=== PATIENT | female | born 1950 | race Caucasian/White ===

== ENCOUNTER 2019-04-23 12:02 | Outpatient (CLI) | payer MEDICARE, SELFPAY ==
[2019-04-23 12:37] LABS: Hematocrit 33.7 % (37.0-47.0); Hemoglobin 10.5 g/dL (12.0-15.0)
[2019-04-23 12:45] LABS: Hemoglobin A1C 5.8 % (<5.7)
[2019-04-23 12:52] LABS: Alanine Aminotransferase 11 U/L (4-35); Albumin Level 4.2 g/dL (3.5-5.1); Alkaline Phosphatase 87 U/L (38-126); Aspartate Amino Transferase 25 U/L (14-36); Bilirubin,Total 0.3 mg/dL (0.2-1.3); Cholesterol 161 mg/dL (0-200); HDL Direct 60 mg/dL; Triglycerides 150 mg/dL (<150)
[2019-04-23 13:03] LABS: LDL Cholesterol Direct 79 mg/dL
[2019-04-23 13:23] LABS: Iron 64 ug/dL (37-170)
[2019-04-23 13:33] LABS: Percent Iron Saturation 18 % (20-50)
== END 2019-04-23 12:03 | disposition home or self-care (01) ==
PROVIDERS: PCP Internal Medicine; Visit Provider Internal Medicine
DX: D64.9 Anemia, unspecified (principal); R73.02 Impaired glucose tolerance (oral); Z79.899 Other long term (current) drug therapy; E78.5 Hyperlipidemia, unspecified
CPT/HCPCS: 36415; 80061; 80076; 83036; 83540; 83550; 85014; 85018

== ENCOUNTER 2019-05-06 10:49 | Outpatient (CLI) | payer MEDICARE, SELFPAY ==
--- NOTE | ~2019-05-06 | MR_ITS ---
EXAMINATION: MR cervical spine wo con EXAM DATE: 05/06/2019 11:55 INDICATION: Neck pain, cervical radiculopathy. TECHNIQUE: Multi-sequential, multiplanar MR images of the cervical spine were obtained without contra st. Axial T2, axial T2 MERGE sequence. Sagittal T1, T2, T2 fat saturation images also obtained. Th ere is no prior study for comparison. Correlation was made with CT cervical spine 12/04/2018. FINDINGS: There is moderate disc disease C3-C6, mild to moderate at C6-7. There is 2 mm retrolisthes is C4 on C5. There is 2 mm anterolisthesis C7 on T1. The vertebral bodies are otherwise aligned. The spinal cord signal intensity and intrinsic morphology is normal. Cervicomedullary junction is normal in appearance. There are no suspicious marrow signal abnormalities. Paraspinal soft tissue is unremar kable. Level by level evaluation: C2-C3: There is small central disc protrusion. Uncovertebral joint arthropathy: None. Facet joint arthropathy: Mild to moderate. Neural foraminal stenosis: No stenosis. Central canal stenosis: Minimal. C3-C4: There is a mild to moderate diffuse disc bulge. Uncovertebral joint arthropathy: Mild to moderate right, mild left. Facet joint arthropathy: Moderate left, mild to moderate right. Neural foraminal stenosis: Mild left. Central canal stenosis: Mild. C4-C5: There is a mild to moderate diffuse disc bulge. Uncovertebral joint arthropathy: Moderate to severe right, moderate left. Facet joint arthropathy: Mild to moderate bilateral. Neural foraminal stenosis: Moderate right, mild to moderate left. Central canal stenosis: Mild to moderate. Central canal measures 6-7 mm in mid sagittal AP diameter . C5-C6: There is a mild diffuse disc bulge. Uncovertebral joint arthropathy: Moderate to severe left, moderate right. Facet joint arthropathy: Mild to moderate bilateral. Neural foraminal stenosis: Moderate left, no right. Central canal stenosis: Mild. C6-C7: There is a mild diffuse disc bulge. Uncovertebral joint arthropathy: Mild to moderate bilateral. Facet joint arthropathy: Mild bilateral. Neural foraminal stenosis: No stenosis. Central canal stenosis: Minimal. C7-T1: There is a minimal diffuse disc bulge. Uncovertebral joint arthropathy: Mild to moderate bilateral. Facet joint arthropathy: Moderate bilateral. Neural foraminal stenosis: No stenosis. Central canal stenosis: No stenosis. IMPRESSION: 1. Overall moderate cervical spondylosis. Reviewed, dictated and finalized at location A. ESSOR OF JOURNALISM
== END 2019-05-06 10:50 | disposition home or self-care (01) ==
PROVIDERS: PCP Internal Medicine; Visit Provider Internal Medicine
DX: M47.22 Other spondylosis with radiculopathy, cervical region (principal)
CPT/HCPCS: 72141

== ENCOUNTER 2019-09-08 13:30 | Emergency (ER) | payer MEDICARE, SELFPAY ==
[2019-09-08 13:48] VITALS: BP 118/59; PULSE 84; RESP 16; TEMP 36.8; O2SAT 99
--- NOTE | 2019-09-08 14:02 | ED.SKABFB ---
HPI - Skin/Abscess/Foreign Bdy General Chief complaint: Skin/Abscess/Foreign Body Stated complaint: rash Time Seen by Provider: 09/08/19 13:50 Source: patient Mode of arrival: ambulatory Limitations: no limitations History of Present Illness HPI narrative: Amanda Cobb is a 69 yo female with a PMH of high cholesterol. RLS. OCD, depression, anxiety, anemia, who comes to express care with a rash that is gradually spreading that she has had for 3 days. States she was cleaning folds in her backyard 5 to 6 days ago and started having small areas on her hands initially and has spread to her face her legs and her genital area Related Data Home Medications Medication Instructions Recorded Confirmed Linzess 145 mcg PO PRN PRN 02/17/19 02/26/19 cyclobenzaprine 5 mg tablet 10 mg PO TID PRN tablet 04/29/19 diclofenac sodium 75 mg PO BID 09/08/19 09/08/19 simvastatin 40 mg PO HS 09/08/19 Allergies Allergy/AdvReac Type Severity Reaction Status Date / Time No Known Allergies Allergy Verified 05/08/19 13:54 Review of Systems Review of Systems: Narrative: CONSTITUTIONAL: Denies fever, chills, sweats. EYES: Denies visual changes, redness, discharge. ENT: Denies rhinorrhea, congestion, sore throat, otalgia. CARDIOVASCULAR: Denies chest pain, palpitations, edema. RESPIRATORY: Denies dyspnea, wheezing, cough GASTROINTESTINAL: Denies abdominal pain, nausea, vomiting, diarrhea. GENITOURINARY: Denies dysuria, hematuria, abnormal discharge SKIN: Has rash and itching. On face arms legs genital NEUROLOGIC: Denies numbness, or focal weakness. PSYCHIATRIC: Denies anxiety or depression. [facility] Past Medical History Medical History Anxiety Cervical disc disease occasional symptoms with numbness and tingling in upper extremities Closed right ankle fracture ORIF with removal of hardware this year. Degenerative joint disease (DJD) of hip Depression Hyperlipidemia Iron deficiency anemia Irritable bowel syndrome with constipation Obsessive compulsive disorder Restless legs syndrome takes carbidopa-levodopa Surgical History Surgical History H/O local excision of skin lesion History of total right hip arthroplasty Previous back surgery Family History Family History Mother Cerebrovascular accident Family history of Alzheimer's disease Family history of heart disease in male family member before age 55 Father Cerebrovascular accident Family history of heart disease in male family member before age 55 Sibling Diabetes mellitus Atrial fibrillation Other Family history of arthritis Family history of cardiovascular disease Family history of gout Social History Social History (Updated 09/08/19 @ 14:07 by Diane Cervantes CNP) Social History: The patient stated that she quit smoking about 6 or 7 years ago. She smoked since she was a young girl. About a half pack to a pack a cigarettes a day. Her Anders is her durable power real estate attorney for healthcare. She wishes to be a full code. She has 1 son. 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 Smoking status: Current some day smoker Tobacco type: e-cigarettes/vaping Alcohol intake: never Substance use: never Gender identity (if verbalized by the patient): Female Spiritual care concerns: No Agree to blood products: Yes Exam Narrative: Exam Narrative: GENERAL: This is a well-nourished, well-developed patient, in mild distress. HEAD: normocephalic, atraumatic. EYES: Sclera clear/white. Vision is grossly intact. Periorbital swelling on right side, with redness EARS: External ears normal, . Hearing grossly intact. NOSE: External nose normal without nasal discharge, nares without redness, no rhinorrhea. THROAT: Mucous membranes moist, NECK: Neck supple, CARDIOVASCULAR: Regular rate and rhythm wit
[2019-09-08] MEDS: predniSONE 20 MG TABLET 60 MG PO (14:21)
== END 2019-09-08 14:39 | disposition home or self-care (01) ==
PROVIDERS: Emergency Provider Nurse Practitioner; PCP Internal Medicine
DX: L23.7 Allergic contact dermatitis due to plants, except food (principal); E78.00 Pure hypercholesterolemia, unspecified; G25.81 Restless legs syndrome; F42.9 Obsessive-compulsive disorder, unspecified; F41.9 Anxiety disorder, unspecified; F32.9 Major depressive disorder, single episode, unspecified; Z86.2 Personal history of diseases of the blood and blood-forming organs and certain disorders involving the immune mechanism; M16.10 Unilateral primary osteoarthritis, unspecified hip; E78.5 Hyperlipidemia, unspecified; K58.9 Irritable bowel syndrome, unspecified; Z87.891 Personal history of nicotine dependence
CPT/HCPCS: 99213; G0463; J7512

== ENCOUNTER 2019-09-22 13:16 | Outpatient (CLI) | payer MEDICARE, SELFPAY ==
[2019-09-22 13:54] LABS: Basophils Absolute Auto 0.1 K/mm3 (0.0-0.1); Basophils Percent Auto 0.7 % (0.2-1.2); Eosinophils Absolute Auto 0.4 K/mm3 (0-0.3); Eosinophils Percent Auto 3.1 % (0-4.4); Hematocrit 34.9 % (37.0-47.0); Hemoglobin 11.2 g/dL (12.0-15.0); Immature Granulocyte Absolute 0.06 K/mm3 (0.00-0.031); Immature Granulocyte Percent A 0.5 % (0-0.5); Mean Corpuscular HGB Conc 32.1 g/dl (32-36); Mean Corpuscular Hemoglobin 28.9 pg (26-34); Mean Corpuscular Volume 89.9 fl (80-100); Mean Platelet Volume 9.6 fl (7.4-10.4); Monocytes Absolute Auto 0.8 K/mm3 (0.1-0.6); Neutrophils Absolute Auto 8.4 K/mm3 (1.3-6.7); Neutrophils Percent Auto 71.7 % (45.5-73.1); Platelet Count Result 299 k/mm3 (150-375); Red Blood Count 3.88 M/mm3 (4.2-5.4); Red Cell Distribution Width 15.3 % (11.5-14.5); White Blood Count 11.8 K/mm3 (4.5-10.0)
[2019-09-22 15:16] LABS: Iron 86 ug/dL (37-170)
[2019-09-22 15:26] LABS: Percent Iron Saturation 22 % (20-50)
== END 2019-09-22 13:17 | disposition home or self-care (01) ==
PROVIDERS: PCP Internal Medicine; Visit Provider Internal Medicine
DX: D50.9 Iron deficiency anemia, unspecified (principal); D64.9 Anemia, unspecified
CPT/HCPCS: 36415; 82728; 83540; 83550; 85025

== ENCOUNTER 2019-09-26 11:46 | Outpatient (CLI) | payer MEDICARE, SELFPAY ==
--- NOTE | ~2019-09-26 | XR_ITS ---
EXAMINATION: XR shoulder LT min 2V DATE: 09/26/2019 12:07 INDICATION: Left shoulder pain. TECHNIQUE: 4 views of left shoulder were obtained. COMPARISON: None. FINDINGS: Bone alignment is normal. No fracture. Subacromial spurring is noted. There is mild osteoar thritis of glenohumeral joint and moderate osteoarthritis of acromioclavicular joint. IMPRESSION: 1. Polyarticular osteoarthritis. Reviewed, dictated and finalized at location A.
== END 2019-09-26 11:47 | disposition home or self-care (01) ==
LOC: ANHIMG 11:51
PROVIDERS: PCP Internal Medicine; Visit Provider Internal Medicine
DX: M25.519 Pain in unspecified shoulder (principal); R79.89 Other specified abnormal findings of blood chemistry; R73.09 Other abnormal glucose; Z79.899 Other long term (current) drug therapy; E78.5 Hyperlipidemia, unspecified; M19.012 Primary osteoarthritis, left shoulder
CPT/HCPCS: 73030

== ENCOUNTER 2020-01-20 12:28 | Outpatient (CLI) | payer MEDICARE, SELFPAY ==
[2020-01-20 13:03] LABS: Hematocrit 35.4 % (37.0-47.0); Hemoglobin 11.5 g/dL (12.0-15.0)
[2020-01-20 13:18] LABS: Hemoglobin A1C 5.5 % (<5.7)
[2020-01-20 13:19] LABS: Alanine Aminotransferase 16 U/L (4-35); Albumin Level 4.3 g/dL (3.5-5.1); Alkaline Phosphatase 73 U/L (38-126); Anion Gap 10 mmol/L (8-16); Aspartate Amino Transferase 27 U/L (14-36); Bilirubin,Total 0.4 mg/dL (0.2-1.3); Blood Urea Nitrogen 15 mg/dL (7-17); Calcium 9.1 mg/dL (8.4-10.2); Carbon Dioxide 31 mmol/L (22-30); Chloride 101 mmol/L (98-107); Cholesterol 184 mg/dL (0-200); Estimated Glomerular Filt Rate > 60; Glucose 118 mg/dL (65-105); HDL Direct 66 mg/dL; Potassium 3.7 mmol/L (3.4-5.0); Sodium 142 mmol/L (137-145); Triglycerides 177 mg/dL (<150)
[2020-01-20 13:30] LABS: LDL Cholesterol Direct 81 mg/dL
[2020-01-20 13:49] LABS: Thyroid Stimulating Hormone 0.147 uIU/mL (0.465-4.680)
[2020-01-20 14:08] LABS: Iron 84 ug/dL (37-170)
[2020-01-20 14:18] LABS: Percent Iron Saturation 20 % (20-50)
[2020-01-20 14:46] LABS: Ferritin 9.52 ng/mL (11.1-264)
== END 2020-01-20 12:29 | disposition home or self-care (01) ==
LOC: ANHLAB 12:31
PROVIDERS: PCP Internal Medicine; Visit Provider Internal Medicine
DX: R79.89 Other specified abnormal findings of blood chemistry (principal); R73.09 Other abnormal glucose; E78.5 Hyperlipidemia, unspecified; D50.9 Iron deficiency anemia, unspecified; Z79.899 Other long term (current) drug therapy
CPT/HCPCS: 36415; 80053; 80061; 82728; 83036; 83540; 83550; 84443; 85014; 85018

== ENCOUNTER 2020-01-29 11:37 | Outpatient (CLI) | payer MEDICARE, SELFPAY ==
--- NOTE | ~2020-01-29 | XR_ITS ---
EXAMINATION: XR_CERV2-3V_CR DATE: 01/29/2020 12:35 INDICATION: Cervical disc disorder, unspecified. TECHNIQUE: 3 views of cervical spine on 4 radiographs were obtained. COMPARISON: Cervical spine MRI 05/06/2019 FINDINGS: There is 2 mm anterolisthesis of C4 on C5. Vertebral body heights are normal. There is mode rately decreased disc height at C3-C4, severely decreased disc height at C4-C5 and C5-C6, and moderat latanya decreased disc height at C6-C7. There is multilevel severe uncovertebral joint osteoarthritis. Th ere is severe facet joint osteoarthritis bilaterally at C7-T1. There is mild central canal stenosis a t C3-C4, C4-C5, C5-C6, and C6-C7. No prevertebral soft tissue swelling. IMPRESSION: 1. Severe cervical spondylosis. Reviewed, dictated and finalized at location B. 3RD MATE
[2020-01-29 12:35] LABS: Rheumatoid Factor < 8.6 IU/ML (<12)
[2020-01-29 13:03] LABS: Thyroid Stimulating Hormone 0.229 uIU/mL (0.465-4.680)
== END 2020-01-29 11:38 | disposition home or self-care (01) ==
PROVIDERS: PCP Internal Medicine; Visit Provider Nurse Practitioner
DX: R94.6 Abnormal results of thyroid function studies (principal); M15.9 Polyosteoarthritis, unspecified; M50.90 Cervical disc disorder, unspecified, unspecified cervical region; M47.892 Other spondylosis, cervical region
CPT/HCPCS: 36415; 72040; 84443; 86430

== ENCOUNTER 2020-02-09 11:07 | Outpatient (CLI) | payer MEDICARE, SELFPAY ==
--- NOTE | ~2020-02-09 | US_ITS ---
EXAMINATION: US thyroid DATE: 02/09/2020 11:40 INDICATION: Other specified abnormal findings of blood chemistry. TECHNIQUE: Multiple ultrasound images of the thyroid were obtained. COMPARISON: None. FINDINGS: The right thyroid lobe measures 4.2 x 1.3 x 1.3 cm. The left thyroid lobe measures 2.7 x 1.1 x 1.0 c m. There is normal echotexture and echogenicity throughout the thyroid gland. No discrete nodules id entified. Normal vascular flow is present. IMPRESSION: 1. Normal thyroid. Reviewed, dictated and finalized at location A. 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 Normal thyroid.
== END 2020-02-09 11:08 | disposition home or self-care (01) ==
PROVIDERS: PCP Internal Medicine; Visit Provider Nurse Practitioner
DX: R79.89 Other specified abnormal findings of blood chemistry (principal)
CPT/HCPCS: 76536

== ENCOUNTER 2020-03-09 10:20 | Outpatient (CLI) | payer MEDICARE, SELFPAY ==
--- NOTE | ~2020-03-09 | CT_ITS ---
EXAMINATION:CT lung screening DATE: 03/09/2020 11:11 INDICATION: Personal history of tobacco dependence. Smoker who quit 10 years ago with 30 pack year hi story. TECHNIQUE: Computed tomography (CT) of the chest was performed without intravenous contrast. Automate d exposure control and iterative reconstruction technique were employed. The dose-length product (DLP ) was 66.43 mGy-cm. COMPARISON: CT abdomen and pelvis 11/28/2017 FINDINGS: There is mild scarring at the lung apices. A calcified left lung nodule and calcified left hilar and mediastinal lymph nodes are consistent with old granulomatous disease. No pleural effusion. The heart size is normal. There are coronary artery calcifications. No pericardial effusion. Calcifi cations in the liver and spleen are consistent with old granulomatous disease. There is moderate thor acic spondylosis. There is a chronic burst fracture of T12. IMPRESSION: 1. Lung-RADS category 2: Benign appearance or behavior. Continue annual screening with noncontrast lo w-dose chest CT in 12 months. Reviewed, dictated and finalized at location A. ICATION TECHNICIAN IMPRESSION: 1. Lung-RADS category 2: Benign appearance or behavior. Continue annual screeni ng with noncontrast low-dose chest CT in 12 months.
--- NOTE | ~2020-03-09 | DEXA_ITS ---
Bone Density Report Name: Amanda Cobb Age: 69 Sex: Female Ethnicity: White Date of : 1950 Indication: postmenopausal; Referring Provider: Holly Elliott Study: Bone densitometry was performed. Exam Date: March 09, 2020 Accession number: [id number] Bone Density: Region BMD T-score Z-score Classification Femoral Neck (Left) 0.675 -1.6 0.1 Osteopenia Total Hip (Left) 0.892 -0.4 0.9 Normal World Health Organization criteria for BMD impression classify patients as: Normal (T-score at or above -1.0), Osteopenia (T-score between -1.0 and -2.5), or Osteoporosis (T-score at or below -2.5). 10-year Fracture Risk(1): Major Osteoporotic Fracture 8.5% Hip Fracture 1.1% Reported Risk Factors: [place] (), Neck BMD=0.675, BMI=21.0 (1) FRAX(R) Version 3.08. Fracture probability calculated for an untreated patient. Fracture probability may be lower if the patient has received treatment. Previous Exams: Region Exam Age BMD T-score BMD Change BMD Change Date g/cm2 vs Baseline vs Previous Total Hip(Left) 03/09/2020 69 0.892 -0.4 0.025(2.9%)# 0.025(2.9%)# 07/06/2005 54 0.867 -0.6 *Denotes significance at 95% confidence level, LSC for Total Hip = 0.027 g/cm2 Clinical Information Provided by Patient: Has used the following medications: Vitamin D, Calcium Patient maximum height was 66 No regular weight bearing exercise Drinks caffeinated beverages Onset of menses at age 15 Number of children 1 Impression: The patient has low bone mass, based on the Left Femoral Neck T-score. The patient has an estimated ten-year risk of hip fracture of 1.1% and an estimated ten-year risk of major fracture of 8.5%, based on the WHO FRAX algorithm. No significant bone loss was observed. Discussion: BONE DENSITY IS LOW AT ONE OR MORE SKELETAL SITES. This patient's lowest T-score is low at one or more skeletal sites. It meets the World Health Organization's (WHO) criteria for ?low bone mass? (T-score between -1.0 and -2.5). The patient's 10-year risk of fracture as calculated by FRAX is less than the threshold where pharmacological therapy is recommended by the National Osteoporosis Foundation (NOF). However, all treatment decisions require clinical judgment and consideration of individual patient factors, including patient preferences, comorbidities, previous drug use, risk factors not captured in the FRAX model (e.g., frailty, falls, vitamin D deficiency, increased bone turnover, interval significant decline in bone density) and possible under or overestimation of fracture risk by FRA
--- NOTE | ~2020-03-09 | MM_ITS ---
EXAMINATION: MM screening onra BI w christiana HISTORY: Screening mammogram TECHNIQUE: Craniocaudal and mediolateral oblique 3-D tomosynthesis images were obtained and synthetic 2-D images were generated. CAD analysis was submitted and interpreted. COMPARISON: 07/06/2018, 03/30/2017, 10/01/2013 bilateral digital screening mammogram examinations BREAST PARENCHYMAL COMPOSITION: There are scattered areas of fibroglandular density. FINDINGS: Multiple benign right breast calcifications are again noted. There is no evidence of suspic ious mass, calcification, or architectural distortion to suggest malignancy in either breast. There h as been no suspicious interval change. IMPRESSION: 1. No mammographic evidence of malignancy. 2. Recommend routine screening mammography in one year. BI-RADS Category 2: Benign finding(s). Reviewed, dictated and finalized at location A. 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
== END 2020-03-09 10:21 | disposition home or self-care (01) ==
LOC: ANHIMG 10:24
PROVIDERS: Visit Provider Nurse Practitioner
DX: Z12.2 Encounter for screening for malignant neoplasm of respiratory organs (principal); Z87.891 Personal history of nicotine dependence; Z78.0 Asymptomatic menopausal state; Z12.31 Encounter for screening mammogram for malignant neoplasm of breast; M85.852 Other specified disorders of bone density and structure, left thigh
CPT/HCPCS: 77063; 77067; 77080; G0297

== ENCOUNTER 2020-03-09 11:27 | Outpatient (CLI) | payer MEDICARE, SELFPAY ==
--- NOTE | ~2020-03-09 | MR_ITS ---
EXAMINATION: MR cervical spine wo con EXAM DATE: 03/09/2020 12:22 INDICATION: Cervical radiculopathy. TECHNIQUE: Multi-sequential, multiplanar MR images of the cervical spine were obtained without contra st. Axial T2, axial T2 MERGE sequence. Sagittal T1, T2, T2 fat saturation images also obtained. Com parison is made to prior examination from 05/16/2019. FINDINGS: There is moderate loss of the disc heights from C3 through C6. There is 2 mm anterolisthes is C7 on T1. The spinal cord signal intensity and intrinsic morphology is normal. Cervicomedullary ju nction is normal in appearance. There are no suspicious marrow signal abnormalities. Paraspinal soft tissue is unremarkable. Level by level evaluation: C2-C3: There is a mild diffuse disc bulge. Uncovertebral joint arthropathy: None. Facet joint arthropathy: Mild. Neural foraminal stenosis: No stenosis. Central canal stenosis: No stenosis. C3-C4: There is a mild diffuse disc bulge. Uncovertebral joint arthropathy: Mild to moderate bilateral. Facet joint arthropathy: Mild to moderate bilateral. Neural foraminal stenosis: Mild bilateral. Central canal stenosis: Mild. C4-C5: There is a mild to moderate diffuse disc bulge. Uncovertebral joint arthropathy: Moderate to severe right, moderate left. Facet joint arthropathy: Moderate right, mild to moderate left. Neural foraminal stenosis: Moderate right, mild to moderate left. Central canal stenosis: Mild to moderate . Central canal measures 6 mm in mid sagittal AP diameter . C5-C6: There is a mild to moderate diffuse disc bulge. Uncovertebral joint arthropathy: Moderate to severe left, moderate right. Facet joint arthropathy: Mild to moderate bilateral. Neural foraminal stenosis: Moderate left, no right. Central canal stenosis: Mild. C6-C7: There is a mild diffuse disc bulge. Uncovertebral joint arthropathy: Moderate bilateral. Facet joint arthropathy: Mild bilateral. Neural foraminal stenosis: Mild bilateral. Central canal stenosis: Mild. C7-T1: Disc does not extend beyond the endplate margin. Uncovertebral joint arthropathy: Mild to moderate. Facet joint arthropathy: Moderate bilateral. Neural foraminal stenosis: No stenosis. Central canal stenosis: No stenosis. Difficult to appreciate any significant interval change compared to April. IMPRESSION: 1. Overall moderate midcervical predominant spondylosis. Reviewed, dictated and finalized at location B. R SPRINGER
--- NOTE | ~2020-03-09 | XR_ITS ---
EXAMINATION: XR_CERV2-3V_CR EXAM DATE: 03/09/2020 12:40 INDICATION: Cervical radiculopathy. TECHNIQUE: Lateral neutral projection of cervical spine. Lateral flexion, lateral extension projecti ons of the cervical spine. Comparison is made to prior examination from 01/29/2020. FINDINGS: There is moderate disc disease C3-C6, mild to moderate C6-7. Moderate-sized bridging endpl ate osteophytes. Vertebral bodies are aligned on all the lateral projections. Mild reversal of normal cervical lordosis. Prevertebral soft tissue and pre-dens space are within normal limits. IMPRESSION: Moderate midcervical disc disease. Reviewed, dictated and finalized at location B. PRESIDENT OF MANUFACTURING
--- NOTE | ~2020-03-09 | XR_ITS ---
EXAMINATION: XR lumbar spine 2-3V EXAM DATE: 03/09/2020 12:40 INDICATION: Lumbago . Low back pain. TECHNIQUE: Lumber spine frontal, lateral, lateral L5-S1 projections for interpretation. Comparison is made to prior examination from 11/11/2015. FINDINGS: Lumbar fusion posteriorly with laminectomies at L3-5. The hardware is intact. There is mod erate disc disease L2-3 and L5-S1, mild to moderate at L3-4 and L4-5. There is 2-3 mm retrolisthesis L2 on L3. The vertebral bodies are otherwise aligned. Sacrum, sacroiliac joints, sacral arcuate lines are intact. Right hip arthroplasty. There is mild to moderate compression fracture superior endplate of T12, may have mild progression co mpared to 2016. IMPRESSION: 1. Posterior fusion, laminectomies L3-L5. 2. Mild to moderate T12 compression fracture. 3. Mild to moderate lumbar spondylosis. Reviewed, dictated and finalized at location B. 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
== END 2020-03-09 11:28 ==
PROVIDERS: PCP Internal Medicine; Visit Provider Nurse Practitioner Family
DX: M54.12 Radiculopathy, cervical region (principal); M54.5 Low back pain; Z98.1 Arthrodesis status; M48.54XA Collapsed vertebra, not elsewhere classified, thoracic region, initial encounter for fracture; M47.816 Spondylosis without myelopathy or radiculopathy, lumbar region; M50.921 Unspecified cervical disc disorder at C4-C5 level; M47.812 Spondylosis without myelopathy or radiculopathy, cervical region
CPT/HCPCS: 72040; 72100; 72141

== ENCOUNTER 2020-07-18 20:23 | Emergency (ER) | payer MEDICARE, SELFPAY ==
--- NOTE | ~2020-07-18 | CT_ITS ---
EXAMINATION: CT abdomen pelvis w con INDICATION: Lower abdominal pain TECHNIQUE: Computed tomographic images of the abdomen and pelvis were obtained after the administrati on of 100 cc of Omnipaque 350 intravenous contrast. The dose-length product (DLP) was 277.81 mGy-cm. Automated exposure control and iterative reconstruction technique were employed. COMPARISON: 11/28/2017 FINDINGS: Minimal dependent atelectasis is present in the lung bases. The heart size is normal. There is focal fatty infiltration of the liver near the ligamentum teres. Punctate calcifications in the l iver and spleen likely represent healed granulomatous disease. There is a 7 mm cyst of the right kidn ey. The left kidney is unremarkable. There is calcified atherosclerosis of the aorta and many of the other arteries. No pathologically enlarged abdominal or pelvic lymph nodes are identified. There is n o free intraperitoneal gas or evidence of bowel obstruction. There are changes of right hip hemiarthr oplasty and laminectomy and posterior fusion from L3 through L5. IMPRESSION: 1. No CT correlate for the patient's symptoms. Reviewed, dictated and finalized at location A.
[2020-07-18 20:24] VITALS: BP 108/85; PULSE 85; RESP 17; TEMP 36.8; O2SAT 98
[2020-07-18 20:47] LABS: Basophils Absolute Auto 0.1 K/mm3 (0.0-0.1); Basophils Percent Auto 0.7 % (0.2-1.2); Eosinophils Absolute Auto 0.4 K/mm3 (0-0.3); Eosinophils Percent Auto 3.8 % (0-4.4); Hematocrit 37.3 % (37.0-47.0); Hemoglobin 11.9 g/dL (12.0-15.0); Immature Granulocyte Absolute 0.03 K/mm3 (0.00-0.031); Immature Granulocyte Percent A 0.3 % (0-0.5); Lymphocytes Absolute Auto 2.48 K/mm3 (0.9-3.2); Lymphocytes Percent Auto 24.8 % (18.3-44.2); Mean Corpuscular HGB Conc 31.9 g/dl (32-36); Mean Corpuscular Hemoglobin 30.7 pg (26-34); Mean Corpuscular Volume 96.4 fl (80-100); Mean Platelet Volume 9.5 fl (7.4-10.4); Monocytes Absolute Auto 0.9 K/mm3 (0.1-0.6); Monocytes Percent Auto 8.9 % (2.6-8.5); Neutrophils Absolute Auto 6.1 K/mm3 (1.3-6.7); Neutrophils Percent Auto 61.5 % (45.5-73.1); Platelet Count Result 336 k/mm3 (150-375); Red Blood Count 3.87 M/mm3 (4.2-5.4); Red Cell Distribution Width 13.5 % (11.5-14.5)
[2020-07-18 20:58] LABS: Alanine Aminotransferase 18 U/L (4-35); Albumin Level 4.2 g/dL (3.5-5.1); Alkaline Phosphatase 77 U/L (38-126); Anion Gap 7 mmol/L (8-16); Aspartate Amino Transferase 30 U/L (14-36); Bilirubin,Total 0.2 mg/dL (0.2-1.3); Blood Urea Nitrogen 14 mg/dL (7-17); Calcium 9.4 mg/dL (8.4-10.2); Carbon Dioxide 29 mmol/L (22-30); Chloride 106 mmol/L (98-107); Estimated CRCL calculation 48 ml/min; Estimated Glomerular Filt Rate > 60; Glucose 139 mg/dL (65-105); Lipase 40 U/L (23-300); Sodium 142 mmol/L (137-145)
[2020-07-18 21:35] LABS: Add Urine Microscopic? YES; Appearance Urine Cloudy (Clear); Bacteria Urine Trace /hpf; Bilirubin Urine Negative (Negative); Blood Urine Negative (Negative); Color Urine Yellow (Yellow); Glucose Urine UA Negative (Negative); Ketones Urine Negative (Negative); Leukocyte Esterase Ur Trace LEU/UL (Negative); Mucus Urine Rare /lpf; Nitrate Urine Negative (Negative); Protein Urine Negative (Negative); RBC Urine 0-2 /hpf (0-2); Specific Grav Ur 1.021 (1.001-1.035); Squamous Epithelial Cell Urine Occasional /hpf (Few); Urobilinogen Urine Negative mg/dL (<2.0)
[2020-07-18] MEDS: ONDANSETRON INJ 4 MG/2 ML VIAL IV PUSH (21:56)
[2020-07-18] MEDS: MORPHINE SULFATE (*CRX) 4 MG/ML INJ IV PUSH (21:56)
[2020-07-18 21:58] VITALS: BP 116/82; PULSE 74; RESP 14; O2SAT 99
--- NOTE | 2020-07-18 22:04 | PC.NURSE ---
pt to CT at this time
--- NOTE | 2020-07-18 22:50 | ED.ABDPAIN ---
HPI - Abdominal Pain General Chief Complaint: Abdominal Pain Stated Complaint: abd pain Time Seen by Provider: 07/18/20 21:15 Source: patient Mode of arrival: ambulatory Limitations: no limitations History of Present Illness HPI narrative: 69-year-old with a history of IBS here with complaints of lower abdominal pain for past 2 days however today got worse. She denies any nausea, vomiting. Denies any fever or chills. Last bowel movement was few days ago. She denies any urinary symptoms. MD elicited complaint: abdominal pain Pertinent past history: constipation Onset (ago): day(s) (2) Location: suprapubic Severity: moderate Quality: cramping Radiation: none Exacerbating factors: nothing Relieving factors: nothing Related Data Home Medications Medication Instructions Recorded Confirmed calcium carbonate 600 mg calcium 600 mg PO DAILY 03/11/20 (1,500 mg) tablet cholecalciferol (vitamin D3) 50 50 mcg PO DAILY 03/11/20 mcg (2,000 unit) tablet Allergies Allergy/AdvReac Type Severity Reaction Status Date / Time No Known Allergies Allergy Verified 07/18/20 20:23 Review of Systems Review of Systems: All systems reviewed & are unremarkable except as noted in HPI and below Constitutional: Constitutional: Reports no additional constitutional complaints Eyes: Eyes: Reports no additional eye complaints ENT: Reports system reviewed and no additional complaints, except as documented Cardiovascular: Cardiovascular: Reports no additional cardiovascular complaints Respiratory: Respiratory: Reports no additional respiratory complaints Gastrointestinal: Gastrointestinal: Reports as per HPI Musculoskeletal: Musculoskeletal: Reports no additional musculoskeletal complaints Integumentary/Breasts: Skin/Breast: Reports system reviewed and no additional complaints, except as docu [facility] Past Medical History Medical History Abnormal thyroid blood test Anxiety Cataract of left eye Cervical disc disease occasional symptoms with numbness and tingling in upper extremities Closed right ankle fracture ORIF with removal of hardware this year. Degenerative joint disease (DJD) of hip Depression Hyperlipidemia Iron deficiency anemia Irritable bowel syndrome with constipation Obsessive compulsive disorder Polyosteoarthritis Postmenopausal Restless legs syndrome takes carbidopa-levodopa Screening for breast cancer Screening for colon cancer Surgical History Surgical History H/O local excision of skin lesion History of total right hip arthroplasty Previous back surgery Family History Family History Mother Cerebrovascular accident Family history of Alzheimer's disease Family history of heart disease in male family member before age 55 Father Cerebrovascular accident Family history of heart disease in male family member before age 55 Sibling Diabetes mellitus Atrial fibrillation Other Family history of arthritis Family history of cardiovascular disease Family history of gout Social History Social History Social History: The patient stated that she quit smoking about 6 or 7 years ago. She smoked since she was a young girl. About a half pack to a pack a cigarettes a day. Her Anders is her durable power senior trial attorney for healthcare. She wishes to be a full code. She has 1 son. 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 Smoking packs per day: 1 Smoking cigarettes per day: 20.0 Years smoked: 20 Smoking pack-years: 20.00 Smoking status: Former smoker Tobacco type: e-cigarettes/vaping Alcohol intake: never Substance use: never Gender identity (if verbalized by the patient): Female Spiritual care concerns: No Agree to blood products: Yes Exam Narrative: Exam Narrati
[2020-07-18 22:57] VITALS: BP 116/72; PULSE 74; RESP 16; O2SAT 100
[2020-07-18] MEDS: MAGNESIUM CITRATE 300 ML BTL PO (22:58)
== END 2020-07-18 23:14 | disposition home or self-care (01) ==
PROVIDERS: Emergency Medicine; Emergency Provider Family Medicine; PCP Internal Medicine
DX: K59.01 Slow transit constipation (principal); K58.1 Irritable bowel syndrome with constipation; E78.5 Hyperlipidemia, unspecified; G25.81 Restless legs syndrome; D50.9 Iron deficiency anemia, unspecified; M50.90 Cervical disc disorder, unspecified, unspecified cervical region; M16.10 Unilateral primary osteoarthritis, unspecified hip; F42.9 Obsessive-compulsive disorder, unspecified; F41.9 Anxiety disorder, unspecified; F32.9 Major depressive disorder, single episode, unspecified; Z96.641 Presence of right artificial hip joint; Z87.891 Personal history of nicotine dependence
CPT/HCPCS: 36415; 74177; 80053; 81001; 83690; 85025; 96374; 96375; 99284; A9270; J2270; J2405; Q9967

== ENCOUNTER 2020-07-26 12:11 | Outpatient (CLI) | payer MEDICARE, SELFPAY ==
[2020-07-26 12:34] LABS: Basophils Absolute Auto 0.1 K/mm3 (0.0-0.1); Basophils Percent Auto 0.6 % (0.2-1.2); Eosinophils Absolute Auto 0.2 K/mm3 (0-0.3); Eosinophils Percent Auto 2.2 % (0-4.4); Hematocrit 35.6 % (37.0-47.0); Hemoglobin 11.4 g/dL (12.0-15.0); Immature Granulocyte Absolute 0.03 K/mm3 (0.00-0.031); Immature Granulocyte Percent A 0.3 % (0-0.5); Lymphocytes Absolute Auto 1.42 K/mm3 (0.9-3.2); Lymphocytes Percent Auto 14.3 % (18.3-44.2); Mean Corpuscular Hemoglobin 30.3 pg (26-34); Mean Corpuscular Volume 94.7 fl (80-100); Mean Platelet Volume 9.5 fl (7.4-10.4); Monocytes Absolute Auto 0.9 K/mm3 (0.1-0.6); Monocytes Percent Auto 9.1 % (2.6-8.5); Neutrophils Absolute Auto 7.3 K/mm3 (1.3-6.7); Neutrophils Percent Auto 73.5 % (45.5-73.1); Platelet Count Result 346 k/mm3 (150-375); Red Blood Count 3.76 M/mm3 (4.2-5.4); Red Cell Distribution Width 13.3 % (11.5-14.5); White Blood Count 9.9 K/mm3 (4.5-10.0)
[2020-07-26 12:45] LABS: Hemoglobin A1C 5.8 % (<5.7)
[2020-07-26 12:53] LABS: Alanine Aminotransferase 14 U/L (4-35); Albumin Level 4.2 g/dL (3.5-5.1); Alkaline Phosphatase 78 U/L (38-126); Anion Gap 4 mmol/L (8-16); Aspartate Amino Transferase 29 U/L (14-36); Bilirubin,Total 0.2 mg/dL (0.2-1.3); Blood Urea Nitrogen 17 mg/dL (7-17); Calcium 9.4 mg/dL (8.4-10.2); Carbon Dioxide 33 mmol/L (22-30); Chloride 102 mmol/L (98-107); Cholesterol 155 mg/dL (0-200); Estimated Glomerular Filt Rate > 60; Glucose 103 mg/dL (65-105); HDL Direct 67 mg/dL; Potassium 4.7 mmol/L (3.4-5.0); Sodium 139 mmol/L (137-145); Triglycerides 102 mg/dL (<150)
[2020-07-26 13:04] LABS: LDL Cholesterol Direct 61 mg/dL
[2020-07-26 13:23] LABS: Iron 43 ug/dL (37-170)
[2020-07-26 13:34] LABS: Percent Iron Saturation 12 % (20-50)
== END 2020-07-26 12:12 | disposition home or self-care (01) ==
PROVIDERS: PCP Internal Medicine; Visit Provider Nurse Practitioner
DX: E78.5 Hyperlipidemia, unspecified (principal); D50.9 Iron deficiency anemia, unspecified; R73.09 Other abnormal glucose; R94.6 Abnormal results of thyroid function studies
CPT/HCPCS: 36415; 80053; 80061; 83036; 83540; 83550; 84443; 85025

== ENCOUNTER 2020-08-31 15:03 | Outpatient (CLI) | payer MEDICARE, SELFPAY ==
[2020-09-08 10:02] LABS: Gliadin AB, IgG 4 Units (<20); Reticulin IgA Negative (Negative); TTG IGA AB 1 U/mL (<4)
== END 2020-08-31 15:04 | disposition home or self-care (01) ==
PROVIDERS: PCP Internal Medicine; Visit Provider Internal Medicine Gastroenterology
DX: R63.4 Abnormal weight loss (principal)
CPT/HCPCS: 36415; 83516; 86255

== ENCOUNTER 2021-02-09 09:12 | Outpatient (CLI) | payer MEDICARE, SELFPAY ==
[2021-02-09 09:46] LABS: Hematocrit 36.5 % (37.0-47.0); Hemoglobin 11.4 g/dL (12.0-15.0)
[2021-02-09 10:06] LABS: Alanine Aminotransferase 15 U/L (4-35); Albumin Level 4.1 g/dL (3.5-5.1); Alkaline Phosphatase 62 U/L (38-126); Anion Gap 5 mmol/L (8-16); Aspartate Amino Transferase 22 U/L (14-36); Bilirubin,Total 0.4 mg/dL (0.2-1.3); Blood Urea Nitrogen 21 mg/dL (7-17); Calcium 9.1 mg/dL (8.4-10.2); Carbon Dioxide 32 mmol/L (22-30); Chloride 101 mmol/L (98-107); Cholesterol 197 mg/dL (0-200); Estimated Glomerular Filt Rate > 60; Glucose 98 mg/dL (65-110); HDL Direct 92 mg/dL; Potassium 3.7 mmol/L (3.4-5.0); Sodium 138 mmol/L (137-145); Triglycerides 143 mg/dL (<150)
[2021-02-09 10:07] LABS: Iron 56 ug/dL (37-170)
[2021-02-09 10:17] LABS: LDL Cholesterol Direct 73 mg/dL
[2021-02-09 10:20] LABS: Percent Iron Saturation 16 % (20-50)
[2021-02-09 10:25] LABS: Vitamin D 25 Hydroxy 38.2 ng/mL
== END 2021-02-09 09:13 | disposition home or self-care (01) ==
PROVIDERS: PCP Internal Medicine; Visit Provider Internal Medicine
DX: D50.9 Iron deficiency anemia, unspecified (principal); E78.5 Hyperlipidemia, unspecified; Z51.81 Encounter for therapeutic drug level monitoring; Z79.899 Other long term (current) drug therapy; R73.09 Other abnormal glucose; D64.9 Anemia, unspecified
CPT/HCPCS: 36415; 80053; 80061; 82306; 83036; 83540; 83550; 85014; 85018

== ENCOUNTER 2021-05-07 11:20 | Outpatient (CLI) | payer MEDICARE, SELFPAY ==
[2021-05-07 12:20] LABS: Add Urine Microscopic? YES; Appearance Urine Clear (Clear); Bilirubin Urine Negative (Negative); Blood Urine 1+ (Negative); Color Urine Yellow (Yellow); Glucose Urine UA Negative (Negative); Ketones Urine Negative (Negative); Leukocyte Esterase Ur Trace LEU/UL (Negative); Mucus Urine Rare /lpf; Nitrate Urine Negative (Negative); Protein Urine Negative (Negative); Specific Grav Ur 1.029 (1.001-1.035); Squamous Epithelial Cell Urine Rare /hpf (Few)
== END 2021-05-07 11:21 | disposition home or self-care (01) ==
PROVIDERS: PCP Internal Medicine; Visit Provider Nurse Practitioner
DX: R39.9 Unspecified symptoms and signs involving the genitourinary system (principal)
CPT/HCPCS: 81001; 87086

== ENCOUNTER 2022-11-24 11:54 | Emergency (ER) | payer MEDICARE, SELFPAY ==
[2022-11-24 12:17] VITALS: BP 118/63; PULSE 81; RESP 16; TEMP 36.3; O2SAT 99
--- NOTE | 2022-11-24 12:22 | ED.FEMALEGU ---
HPI - Female Genitourinary General Chief complaint: Urogenital-Female Stated complaint: urinary issue Time Seen by Provider: 11/24/22 12:22 Source: patient Mode of arrival: ambulatory Limitations: no limitations History of Present Illness HPI Narrative: 72-year-old female presents with complaint of urinary frequency, mild low back pain, dysuria starting last night. Today she reports fatigue and chills. Afebrile. Denies nausea vomiting diarrhea. No abdominal pain. Ambulatory with steady gait. Concerned that she has a urinary tract infection. All systems reviewed and negative except as noted above. Related Data Home Medications Medication Instructions Recorded Confirmed cholecalciferol (vitamin D3) 50 50 mcg PO DAILY 03/11/20 11/24/22 mcg (2,000 unit) tablet alendronate 70 mg tablet 70 mg PO WEEKLY 05/05/21 11/24/22 folic acid 1 mg tablet 1 mg PO DAILY 05/05/21 11/24/22 Allergies Allergy/AdvReac Type Severity Reaction Status Date / Time No Known Allergies Allergy Verified 11/24/22 12:11 Review of Systems Review of Systems: CONSTITUTIONAL: Denies fever, chills, or sweats. EYES: Denies visual changes, redness, or discharge. ENT: Denies rhinorrhea, congestion, sore throat, or otalgia. CARDIOVASCULAR: Denies chest pain, palpitations, or edema. RESPIRATORY: Denies cough or dyspnea. GASTROINTESTINAL: Denies abdominal pain, nausea, vomiting, or diarrhea. GENITOURINARY: Reports dysuria ,frequency, low back pain. Denies hematuria. SKIN: Denies rash or itching. MUSCULOSKELETAL: Denies back pain, joint pain, or myalgia. NEUROLOGIC: Denies headache, numbness, or weakness. PSYCHIATRIC: Denies anxiety or depression. All other systems reviewed are negative, except as documented in HPI. [facility] Past Medical History Medical History Abnormal thyroid blood test Anxiety Cataract of left eye Cervical disc disease occasional symptoms with numbness and tingling in upper extremities Closed right ankle fracture ORIF with removal of hardware this year. Degenerative joint disease (DJD) of hip Depression Hyperlipidemia Iron deficiency anemia Irritable bowel syndrome with constipation Obsessive compulsive disorder Polyosteoarthritis Postmenopausal Restless legs syndrome takes carbidopa-levodopa Screening for breast cancer Screening for colon cancer Surgical History Surgical History H/O local excision of skin lesion History of total right hip arthroplasty Previous back surgery Family History Family History Mother Cerebrovascular accident Family history of Alzheimer's disease Family history of heart disease in male family member before age 55 Father Cerebrovascular accident Family history of heart disease in male family member before age 55 Sibling Diabetes mellitus Atrial fibrillation Other Family history of arthritis Family history of cardiovascular disease Family history of gout Social History Social History Social History: The patient stated that she quit smoking about 6 or 7 years ago. She smoked since she was a young girl. About a half pack to a pack a cigarettes a day. Her Anders is her durable power family law attorney for healthcare. She wishes to be a full code. She has 1 son. 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 Smoking packs per day: 1 Smoking cigarettes per day: 20.0 Years smoked: 20 Smoking pack-years: 20.00 Tobacco type: cigarettes and e-cigarettes/vaping Second hand tobacco smoke exposure: Yes Smoking end date: 03/19/09 Alcohol intake: never Substance use: never Substance use type: does not use Living arrangements: with family Occupation/Education: retired Gender identity (if verbalized by the patient): Female Spiritual care concern
== END 2022-11-24 12:45 | disposition home or self-care (01) ==
PROVIDERS: Emergency Provider Nurse Practitioner Family
DX: N39.0 Urinary tract infection, site not specified (principal); Z87.891 Personal history of nicotine dependence; E78.5 Hyperlipidemia, unspecified; M13.0 Polyarthritis, unspecified; G25.81 Restless legs syndrome; D50.9 Iron deficiency anemia, unspecified; Z96.641 Presence of right artificial hip joint
CPT/HCPCS: 81003; 87086; 99213; G0463

== ENCOUNTER 2023-07-21 14:21 | Emergency (ER) | payer MEDICARE, SELFPAY ==
--- NOTE | ~2023-07-21 | CT_ITS ---
EXAMINATION: CT abdomen pelvis w con DATE: 07/21/2023 17:01 INDICATION: abd pain, bloody stools, history of retroperitoneal fibrosis. TECHNIQUE: Computed tomography (CT) of the abdomen and pelvis was performed with 100 mL Omnipaque-350 intravenous contrast. Automated exposure control and iterative reconstruction technique were employe d. The dose-length product was 251.44 mGy-cm. COMPARISON: 07/18/2020. FINDINGS: Lower thorax: Unremarkable Liver: Normal. Biliary/Gallbladder: Gallbladder is normal. No bile duct dilation. Pancreas: Moderate fatty infiltration. Spleen: Normal. Adrenals:No mass. Kidneys: No suspicious mass, obstructing stone, or hydronephrosis. Subcentimeter right midpole hypode nsity, too small to characterize but likely representing a cyst. GI tract: Mild distal esophageal and gastric wall edema. No small or large bowel dilation. Normal wendie endix. Mesentery/Peritoneum: No ascites, mass, or free air. Retroperitoneum: No mass. Atherosclerotic abdominal aortic and/or arterial calcifications. Mild soft tissue thickening surrounding the abdominal aorta consistent with the given history of retroperitonea l fibrosis. Pelvis: Partially distended urinary bladder. Atrophic uterus. Bilateral ovaries not confidently visua lized.. Soft Tissues: Soft tissues and body wall unremarkable. Bones: No acute osseous finding. Chronic superior endplate deformity at T12. Uncomplicated posterior lumbar fusion hardware. Partially visualized, uncomplicated right hip arthroplasty hardware IMPRESSION: Mild esophagitis/gastritis. Otherwise, no acute abdominopelvic process detected. Reviewed, dictated and finalized at location K.
[2023-07-21 14:27] VITALS: BP 159/66; PULSE 100; RESP 18; TEMP 36.3; O2SAT 97
[2023-07-21 14:56] LABS: Basophils Absolute Auto 0.1 K/mm3 (0.0-0.1); Basophils Percent Auto 0.4 % (0.2-1.2); Eosinophils Percent Auto 0.1 % (0-4.4); Hematocrit 39.6 % (37.0-47.0); Hemoglobin 12.6 g/dL (12.0-15.0); Immature Granulocyte Absolute 0.24 K/mm3 (0.00-0.031); Immature Granulocyte Percent A 1.7 % (0-0.5); Lymphocytes Absolute Auto 1.47 K/mm3 (0.9-3.2); Lymphocytes Percent Auto 10.2 % (18.3-44.2); Mean Corpuscular HGB Conc 31.8 g/dl (32-36); Mean Corpuscular Hemoglobin 30.7 pg (26-34); Mean Corpuscular Volume 96.6 fl (80-100); Mean Platelet Volume 9.5 fl (7.4-10.4); Monocytes Absolute Auto 0.4 K/mm3 (0.1-0.6); Monocytes Percent Auto 2.6 % (2.6-8.5); Neutrophils Absolute Auto 12.3 K/mm3 (1.3-6.7); Platelet Count Result 309 k/mm3 (150-375); Red Cell Distribution Width 16.8 % (11.5-14.5); White Blood Count 14.4 K/mm3 (4.5-10.0)
[2023-07-21 15:11] LABS: Alanine Aminotransferase 28 U/L (6-35); Albumin Level 4.7 g/dL (3.5-5.1); Alkaline Phosphatase 55 U/L (38-126); Anion Gap 13 mmol/L (4-12); Aspartate Amino Transferase 37 U/L (14-36); Bilirubin,Total 0.5 mg/dL (0.2-1.3); Blood Urea Nitrogen 16 mg/dL (7-17); Calcium 9.4 mg/dL (8.4-10.2); Carbon Dioxide 24 mmol/L (22-30); Chloride 104 mmol/L (98-107); Estimated CRCL calculation 60 ml/min; Estimated Glomerular Filt Rate > 60; Glucose 171 mg/dL (65-110); INR 0.9; Potassium 3.7 mmol/L (3.4-5.0); Prothrombin Time 12.3 Seconds (11.1-14.7); Sodium 141 mmol/L (137-145)
--- NOTE | 2023-07-21 15:41 | ED.GIBLEED ---
HPI - GI Bleed General Chief complaint: GI Bleed Stated complaint: GI Bleed Time Seen by Provider: 07/21/23 14:56 Source: patient Mode of arrival: ambulatory Limitations: no limitations History of Present Illness HPI Narrative: This is a 72 year old female that presents to the ER for bloody stools. Reports two episodes of bloody stools ongoing since yesterday. Reports some associated abdominal discomfort and loose stools. She is not on blood thinners. Denies fever, or vomiting. Related Data Home Medications Medication Instructions Recorded Confirmed cholecalciferol (vitamin D3) 50 50 mcg PO DAILY 03/11/20 11/24/22 mcg (2,000 unit) tablet alendronate 70 mg tablet 70 mg PO WEEKLY 05/05/21 11/24/22 folic acid 1 mg tablet 1 mg PO DAILY 05/05/21 11/24/22 Allergies Allergy/AdvReac Type Severity Reaction Status Date / Time No Known Allergies Allergy Verified 07/21/23 14:24 Review of Systems Review of Systems: CONSTITUTIONAL: Denies fever GASTROINTESTINAL: Reports abdominal pain, and diarrhea. All systems reviewed & are unremarkable except as noted in HPI and below PMFSH Past Medical History Medical History Abnormal thyroid blood test Anxiety Cataract of left eye Cervical disc disease occasional symptoms with numbness and tingling in upper extremities Closed right ankle fracture ORIF with removal of hardware this year. Degenerative joint disease (DJD) of hip Depression Hyperlipidemia Iron deficiency anemia Irritable bowel syndrome with constipation Obsessive compulsive disorder Polyosteoarthritis Postmenopausal Restless legs syndrome takes carbidopa-levodopa Screening for breast cancer Screening for colon cancer Surgical History Surgical History H/O local excision of skin lesion History of total right hip arthroplasty Previous back surgery Family History Family History Mother Cerebrovascular accident Family history of Alzheimer's disease Family history of heart disease in male family member before age 55 Father Cerebrovascular accident Family history of heart disease in male family member before age 55 Sibling Diabetes mellitus Atrial fibrillation Other Family history of arthritis Family history of cardiovascular disease Family history of gout Social History Social History Social History: The patient stated that she quit smoking about 6 or 7 years ago. She smoked since she was a young girl. About a half pack to a pack a cigarettes a day. Her Anders is her durable power deputy county attorney for healthcare. She wishes to be a full code. She has 1 son. 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 Smoking packs per day: 1 Smoking cigarettes per day: 20.0 Years smoked: 20 Smoking pack-years: 20.00 Tobacco type: cigarettes and e-cigarettes/vaping Second hand tobacco smoke exposure: Yes Smoking end date: 03/19/09 Alcohol intake: never Substance use: never Substance use type: does not use Living arrangements: with family Occupation/Education: retired Gender identity (if verbalized by the patient): Female Spiritual care concerns: No Agree to blood products: Yes Exam Narrative: GENERAL: Well-appearing, well-nourished, and in no acute distress. HEAD: Normocephalic, atraumatic. EYES: EOMI. CHEST: Clear to auscultation. No respiratory distress. No wheezes rales or rhonchi HEART: Regular rate and rhythm. No murmur heard. Normal peripheral pulses. ABDOMEN: Soft, nondistended, normal active bowel sounds. Mild tenderness to palpation of the left lower abdomen, without guarding EXTREMITIES: Normal range of motion. No edema. SKIN: Warm, dry, no rash. NEURO: No focal deficits. Alert and oriented x3. PSYCH: Normal mood and affect RECTAL: No hemorrhoi
[2023-07-21 16:00] VITALS: BP 138/87; PULSE 88; RESP 19; O2SAT 97
== END 2023-07-21 18:06 | disposition home or self-care (01) ==
PROVIDERS: Emergency Medicine; Emergency Provider Physician Assistant
DX: K92.1 Melena (principal); K20.90 Esophagitis, unspecified without bleeding; E78.5 Hyperlipidemia, unspecified; D50.9 Iron deficiency anemia, unspecified; G25.81 Restless legs syndrome; K58.1 Irritable bowel syndrome with constipation; M16.10 Unilateral primary osteoarthritis, unspecified hip; F41.9 Anxiety disorder, unspecified; F42.9 Obsessive-compulsive disorder, unspecified; F32.A Depression, unspecified; Z96.641 Presence of right artificial hip joint; Z87.891 Personal history of nicotine dependence
CPT/HCPCS: 36415; 74177; 80053; 85025; 85610; 85730; 86850; 86900; 86901; 99284; Q9967

== ENCOUNTER 2024-03-04 11:53 | Emergency (ER) | payer MEDICARE, SELFPAY ==
[2024-03-04 12:00] VITALS: BP 134/71; PULSE 98; RESP 20; TEMP 36.7; O2SAT 100
--- NOTE | 2024-03-04 12:12 | ED_ITS ---
HPI - URI/Sore Throat General Chief Complaint: Upper Respiratory Infection Stated Complaint: COVID+/Cough Time Seen by Provider: 03/04/24 11:56 Source: patient Mode of arrival: ambulatory Limitations: no limitations History of Present Illness HPI Narrative: Patient is a 73-year-old female protested positive for COVID last week. Patient was post have surgery yesterday and it was canceled due to her illness. Patient currently has cough but no fever, chills, nausea, vomiting, diarrhea congestion, sore throat. Reports cough is worse at night and keeping her up. Patient also having fatigue and malaise from not sleeping. Related Data Home Medications ?Medication ?Instructions ?Recorded ?Confirmed ?Last Taken ?Type cholecalciferol (vitamin D3) 50 50 mcg PO DAILY 03/11/20 03/04/24 Unknown History mcg (2,000 unit) tablet alendronate 70 mg tablet 70 mg PO WEEKLY 05/05/21 03/04/24 Unknown History folic acid 1 mg tablet 1 mg PO DAILY 05/05/21 03/04/24 Unknown History duloxetine 60 mg capsule,delayed mg PO 03/04/24 Unknown History release gabapentin 100 mg capsule mg 03/04/24 Unknown History linaclotide 145 mcg capsule mcg 03/04/24 Unknown History (Linzess) ropinirole 0.25 mg tablet mg 03/04/24 Unknown History Allergies Allergy/AdvReac Type Severity Reaction Status Date / Time No Known Allergies Allergy Verified 03/04/24 12:13 Review of Systems Review of Systems: All systems reviewed & are unremarkable except as noted in HPI and below Constitutional: Constitutional: Denies body ache(s), Denies chills, Denies fatigue, Denies fever(s), Denies headache(s), Denies malaise and Denies weakness Eyes: Eyes: Denies blurry vision, Denies itchy eyes and Denies loss of vision ENT: Denies otalgia, Denies headache(s), Reports nasal congestion, Denies sinus pain and Denies sore throat Cardiovascular: Cardiovascular: Denies chest pain, Denies irregular heart rhythm and Denies dyspnea Respiratory: Respiratory: Reports cough and Denies dyspnea Gastrointestinal: Gastrointestinal: Denies abdominal pain, Denies diarrhea, Denies nausea and Denies vomiting Musculoskeletal: Musculoskeletal: Denies back pain, Denies myalgias and Denies arthralgias Integumentary/Breasts: Skin/Breast: Denies pruritus and Denies rash Neurologic: Denies headache(s), Denies loss of vision and Denies weakness Psychiatric: Psychiatric: Reports no additional psychiatric complaints Endocrine: Endocrine: Denies fatigue Allergic/Immunologic: Allergic/Immunologic: Denies itchy eyes PMFSH Past Medical History Medical History Abnormal thyroid blood test Anxiety Cataract of left eye Cervical disc disease occasional symptoms with numbness and tingling in upper extremities Closed right ankle fracture ORIF with removal of hardware this year. Degenerative joint disease (DJD) of hip Depression Hyperlipidemia Iron deficiency anemia Irritable bowel syndrome with constipation Obsessive compulsive disorder Polyosteoarthritis Postmenopausal Restless legs syndrome takes carbidopa-levodopa Screening for breast cancer Screening for colon cancer Surgical History Surgical History H/O local excision of skin lesion History of total right hip arthroplasty Previous back surgery Family History Family History Mother Cerebrovascular accident Family history of Alzheimer's disease Family history of heart disease in male family member before age 55 Father Cerebrovascular accident Family history of heart disease in male family member before age 55 Sibling Diabetes mellitus Atrial fibrillation Other Family history of arthritis Family history of cardiovascular disease Family history of gout Social History Social History Social History: The patient stated that she quit smoking about 6 or 7 years ago. She smoked since she was a young girl. About a half pack to a pack a cigarettes a day. Her Anders is her durable power document review attorney for healthcare. She wishes to be a full code. She has 1 son. 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 Smoking packs per day: 1 Smoking cigarettes per day: 20.0 Years smoked: 20 Smoking pack-years: 20.00 Tobacco type: cigarettes and e-cigarettes/vaping Second hand tobacco smoke exposure: Yes Smoking end date: 03/19/09 Alcohol intake: never Substance use: never Substance use type: does not use Living arrangements: with family Occupation/Education: retired Gender identity (if verbalized by the patient): Female Spiritual care concerns: No Agree to blood products: Yes Comments At time of signature, agree with nursing past medical, surgical, social and family history. There is no relevant family history pertinent to the presenting complaint. Exam Const: General: cooperative, healthy appearing, comfortable, no acute distress and well nourished Nutritional Appearance: well nourished Orientation/consciousness: patient oriented x3 Limitations: no limitations HENMT: Head: normal to inspection, normocephalic and atraumatic Ears: hearing grossly normal bilaterally, external ears normal, TM's normal bilaterally, EAC's normal and no periauricular adenopathy Face/Nose/Sinus: Normal external nose present, Abnormal mucous membranes and turbinates present erythematous bilateral and diffuse, normal facial exam, sinuses nontender and face symmetric Face and sinus: normal facial exam, sinuses nontender and face symmetric Mouth: Yes Normal oral and palatal mucosa present, Yes lip normal, Yes tongue normal, Yes Normal salivary glands and ducts present, Yes oropharynx normal and Yes moist mucous membranes Teeth and gingiva: dentition normal Throat: posterior oropharynx normal, tonsils normal and uvula midline Eyes: General: appearance normal, both eyes and all related structures Alignment and Position: alignment normal and position normal Periorbital: periorbital findings normal Eyelids: eyelids normal Pupils: Equal, round and reactive pupils present Neck: Neck: normal visual inspection, full ROM, no lymphadenopathy and supple Chest: Chest palpation & inspection: normal inspection of the chest and normal palpation of entire chest wall Resp: Effort & Inspection: normal respiratory effort and able to speak in complete sentences Auscultation: clear to auscultation bilaterally, no crackles, no rales, no rhonchi and no wheezes Cardio: Rate: regular rate Rhythm: regular rhythm Heart sounds: S1 normal heart sound present and S2 normal heart sound present GI: Inspection: normal to inspection Skin: General skin exam: normal color and no rashes or lesions noted Neuro: General: patient oriented x3 and moves all extremities Cranial nerves: Yes Equal, round and reactive pupils present Speech: normal speech Gait exam (Neuro): Normal gait present Extrem: General: normal to inspection, full ROM and no edema Psych: Appearance: grossly normal and well kempt Mental Status: mental status grossly normal Speech and movement: Normal speech and movement present Affect: normal affect Attitude: cooperative Thought process: Normal thought process present Course Course Emergency Course: Discharge instructions reviewed with patient, as well as provided in writing per nursing staff. The instructions also include specific and strict return/GO TO THE ER as well as f/u information. All questions have been answered, and the patient deny any further questions with discharge and discharge plan. Portions of this record may have been created with voice recognition software Level of Care: Express Care Visit Vital Signs Vital signs: Vital Signs Temperature 36.7 C 03/04/24 12:00 Pulse Rate 98 03/04/24 12:00 Respiratory Rate 20 03/04/24 12:00 Blood Pressure 134/71 03/04/24 12:00 Pulse Oximetry 100 03/04/24 12:00 Oxygen Delivery Room Air 03/04/24 12:00 Temperature 36.7 C 03/04/24 12:00 Pulse Rate 98 03/04/24 12:00 Respiratory Rate 20 03/04/24 12:00 Blood Pressure 134/71 03/04/24 12:00 Pulse Oximetry 100 03/04/24 12:00 Oxygen Delivery Room Air 03/04/24 12:00 Reviewed MDM - URI/Sore Throat MDM Narrative Medical decision making narrative: Patient now testing negative for COVID. Based on symptoms and history will treat with antibiotics today. Pt well hydrated appearing, in no respiratory dis tress, hemodynamically stable. Recommend supportive care. The patient is stable at time of discharge the clinical impression was discussed and the patient was given the opportunity to ask questions, which were addressed as completely as possible given the information available at present. Anticipatory guidance and return to care precautions were discussed and the importance of primary care follow-up was stressed and encouraged. The patient voiced understanding of the plan, indications to return, and the need for follow-up. Differential diagnosis considered: Bethea virus, strep pharyngitis, allergic rhinitis, upper respiratory tract infection, sinusitis, rhinosinusitis, nasopharyngitis. viral pharyngitis, otitis media, otitis externa, otitis effusion, foreign body, cerumen impaction, viral syndrome, and influenza.? Exam findings show no acute concerns or changes; patient is non-toxic appearing and is in no distress.? Patient is appropriate for outpatient treatment and follow- up.? Medical Records Attestation: I reviewed the patient's medical records. Lab Data Attestation: I reviewed the patient's lab results. Labs: Lab Results 03/04/24 Range/Units 12:45 POC SARS CoV-2 Ag Negative (Negative) Discharge Plan Discharge Clinical Impression: Acute purulent bronchitis Patient Disposition: Home, Self-Care Condition: Stable Instructions: Acute Bronchitis (ED) Additional Instructions: Take antibiotics as prescribed. Use inhaler with spacer. Use Tessalon Perles as needed for cough Your Covid is negative Other symptomatic treatments include -Alternate Tylenol and Motrin per package directions for fever or pain. -Antihistamine medication such as Benadryl/Zyrtec at night and Claritin/Cayla during the day can help improve symptoms. -Use Flonase twice a day for 5 days then daily to help reduce the inflammation and dry up your sinuses. -You can also use Sudafed behind the pharmacy counter(12 or 24 hour). Be sure to drink plenty of water with these medications at least 8 ounces with every dose and it is important to drink 8 to 10 glasses of water per day. Water is a natural decongestant -Eat and drink things that are easy to swallow, like tea or soup, or popsicles. -Oral rinses such as: Salt water gargles and/or may use topical anesthetic (eg. Chloraseptic spray) or lozenges to relieve dryness or throat pain). -Frequent hand washing or hand leaf conditioner is one of the best ways to prevent spread of infection. -Using a vaporizer or humidifier at night will also help thin secretions and help with coughing up phlegm. -Follow up with primary care provider in 3-5 days if condition is not improving - For new or worsening symptoms go directly to the nearest ER Patient Language: Ukrainian Prescriptions: New (DME) Aerochamber MV Spacer See Rx Instructions .Route Qty: 1 0RF Rx Instructions: As directed amoxicillin 875 mg tablet 875 mg PO Q12H 7 Days Qty: 14 0RF benzonatate 100 mg capsule 100 mg PO BID PRN (Reason: cough) Qty: 14 0RF albuterol sulfate 90 mcg/actuation HFA aerosol inhaler 2 puff inhalation QID PRN (Reason: shortness of breath or wheezing) Qty: 6.7 0RF No Action ropinirole 0.25 mg tablet gabapentin 100 mg capsule duloxetine 60 mg capsule,delayed release(DR/EC) PO Linzess 145 mcg capsule ferrous sulfate 325 mg (65 mg iron) tablet 325 mg PO DAILY Qty: 90 2RF alendronate 70 mg tablet 70 mg PO WEEKLY folic acid 1 mg tablet 1 mg PO DAILY pantoprazole 20 mg tablet,delayed release (DR/EC) 20 mg PO HS 28 Days Qty: 28 0RF cholecalciferol (vitamin D3) 50 mcg (2,000 unit) tablet 50 mcg PO DAILY simvastatin 40 mg tablet 40 mg PO DAILY Qty: 90 1RF Follow-up/Referrals: Liz Fontana [Other] - 3 Days Time of Disposition: 12:55
[2024-03-04 12:47] LABS: EDCOVIDSCREEN Negative (Negative)
== END 2024-03-04 13:00 | disposition home or self-care (01) ==
PROVIDERS: Emergency Provider Nurse Practitioner Family
DX: J20.9 Acute bronchitis, unspecified (principal); E78.5 Hyperlipidemia, unspecified; F17.210 Nicotine dependence, cigarettes, uncomplicated; Z79.899 Other long term (current) drug therapy; Z20.822 Contact with and (suspected) exposure to COVID-19
CPT/HCPCS: 87426; 99213; G0463